=== PATIENT | male | born 1950 | race Caucasian/White ===

== ENCOUNTER 2016-10-13 13:14 | Emergency (ER) | payer OTHER ==
--- NOTE | 2016-10-13 13:25 | UCPHY ---
H & P Patient Type: New HPI/ROS: HPI CHIEF COMPLAINT: Right dorsal hand laceration HISTORY OF PRESENT ILLNESS: this patient very pleasant 58-year-old male he is significant past medical history for diabetes, presents to the urgent care with a horizontal 5 cm dorsal right hand laceration that he caught his hand on a nail while building a fence today. Patient is unsure of his tetanus shot is up-to-date. He has no neurovascular compromise he has full range of motion function of his digits and hand. No signs of infection. Past Medical History: Diabetes Past Surgical History: denies any significant recent surgical history Social History: denies daily use of drugs alcohol tobacco products Family History: noncontributory ROS REVIEW OF SYSTEMS: A comprehensive 10 point review of systems is otherwise negative aside from elements mentioned in the history of present illness. Exam Constitutional triage nursing summary reviewed, vital signs reviewed, awake/ alert. Eyes normal conjunctivae and sclera, EOMI, PERRLA. HENT normal inspection, atraumatic, moist mucus membranes, no epistaxis, neck supple/ no meningismus, no raccoon eyes. Respiratory clear to auscultation bilaterally, normal breath sounds, no respiratory distress, no wheezing. Cardiovascular rate normal, regular rhythm, no murmur, no edema, distal pulses normal. Gastrointestinal soft, non-tender, no rebound, no guarding, normal bowel sounds, no distension, no pulsatile mass. Genitourinary no CVA tenderness. Musculoskeletal no midline vertebral tenderness, full range of motion, no calf swelling, no tenderness of extremities, no meningismus, good pulses, neurovascularly intact. Skin right hand: there is a horizontal 5 cm laceration over the 3rd 4th and 5th metacarpal, no tendon involvement no arterial involvement, distally neurovascular intact, warm extremity no signs of infection, no foreign bodies visualized,pink, warm, & dry, no rash, skin atraumatic. Neurologic awake, alert and oriented x 3, AAOx3, moves all 4 extremities equally, motor intact, sensory intact, CN II-XII intact, normal cerebellar, normal vision, normal speech. Psychiatric normal mood/affect. Heme/Lymph/Immune no lymphadenopathy. Differential Diagnosis: includes but is not limited to in a particular order, hand laceration, soft tissue injury, need for tetanus shot Medical Decision Making: this patient's hand laceration be copiously cleaned and repaired under sterile conditions. Patient's tetanus shot will be updated. He will be placed on Keflex to prevent infection given diabetes. Re-evaluation: Laceration Repair Procedure: Verbal Consent was obtained, Under sterile conditions, The patient had lidocaine with epinephrine used approximately 5ccs to local anesthetize the Right dorsal hand laceration 5 cm in horizontal length. The wound was copiously irrigated with sterile fluid, the wound was explored for foreign bodies there were none visualized, the wound was explored with a sterile glove to the base. There are no deep structures involved, including no arterial injury. 4 interrupted 5.O Prolene Sutures were placed in this patient's laceration. He had good close approximation of the wound edges. He Tolerated this well. tetanus shot has been order, Keflex prescription. Wound is not grossly contaminated. It has been repaired nicely. Good approximation wound edges patient tolerated the procedure well. He understands that the sutures removed in 10-12 days. Watch for signs of infection including pus, fever, swelling, redness, drainage, pain. If he sees any of this return immediately to the urgent care or emergency room. Source: Patient - Family History Significant Family History: No pertinent family hx Constitutional: Initial Vital Signs Temperature (C) 36.2 C 10/13/16 13:20 Heart Rate 60 10/13/16 13:20 Respiratory Rate 18 10/13/16 13:20 Blood Pressure 148/92 H 10/13/16 13:20 O2 Sat (%) 92 10/13/16 13:20 O2 Delivery Mode Room Air Allergies/Adverse Reactions: No Known Allergies Allergy (Unverified 10/13/16 13:25) Home Medications: Medication Instructions Recorded Cephalexin [Keflex (*)] 500 mg PO Q6H #28 cap 10/13/16 Lisinopril 10/13/16 Metformin HCl 10/13/16 Statin 10/13/16 Departure - Departure Disposition: Home, Routine, Self-Care Clinical Impression: Laceration Condition: Good Instructions: Laceration (ED), Care For Your Stitches (ED) Additional Instructions: 1. Watch for signs of infection including pus, fever, swelling, redness, drainage, pain. If he sees any of this return immediately to the urgent care or emergency room. 2.. Keep her wound, protected, dry, intact. 3. You will need her sutures out in 10-12 days. 4. Take your antibiotics as prescribed. Referrals: Willard Mora MD [Primary Care Provider] - As per Instructions Prescriptions: Cephalexin [Keflex (*)] 500 mg PO Q6H #28 cap - PQRS PQRS Measurement: 134: Depression screening and followup, PRIME MD-PHQ2 (12 years and older) Over the last 2 weeks, how often have you been bothered by any of the following problems? 1. Feeling down, depressed, or hopeless? 2. Little interest or pleasure in doing things? Patient answered no to both 1 and 2 130: Documentation of medications. Reviewed all patient medications, doses, route and frequency. 226: Do you smoke? No. 47: 65 and older: Advanced care planning. Patient designates surrogate decision maker as Patient refused. 51: 18 years old and older with diagnosis of COPD, spirometry performance. Patient has no history of COPD 52: 18 years old and older with COPD and symptoms of COPD or FEV1<60% predicted prescribed a B Agonist. Spirometry not performed; equipment not available.
[2016-10-13] MEDS ORDERED: TDAP ADULT 0.5 ML INJ (BOOSTRIX) IM ONE (13:41)
[2016-10-13 14:10] VITALS: BP 148/92; PULSE 60; RESP 18; TEMP 97.2; O2SAT 92
== END 2016-10-13 14:06 | disposition home or self-care (01) ==
LOC: CED 13:14
PROC: 0HQFXZZ Repair Right Hand Skin, External Approach (ICD-10-PCS; principal; 2016-10-13)
DX: S61.411A Laceration without foreign body of right hand, initial encounter (principal); W45.0XXA Nail entering through skin, initial encounter; Y92.017 Garden or yard in single-family (private) house as the place of occurrence of the external cause; Y93.H2 Activity, gardening and landscaping; Y99.8 Other external cause status; Z23 Encounter for immunization
CPT/HCPCS: 12002; 90471; 90715; G0463; 99214-PO